=== PATIENT | male | born 1975 | race Caucasian/White ===

== ENCOUNTER 2017-05-19 18:56 | Emergency (ER) | payer SELFPAY ==
[~2017-05-19] VITALS: Ht 188 cm; Wt 100.0 kg
[2017-05-19] MEDS ORDERED: IBUPROFEN 600MG TABLET PO ONE (20:15)
[2017-05-19 20:42] VITALS: BP 137/89
== END 2017-05-19 22:02 | disposition home or self-care (01) ==
LOC: ER 22:02
DX: M79.652 Pain in left thigh (principal); V49.49XA Driver injured in collision with other motor vehicles in traffic accident, initial encounter; Y93.89 Activity, other specified; Y92.410 Unspecified street and highway as the place of occurrence of the external cause
CPT/HCPCS: 73552; 99284